=== PATIENT | male | born 1965 | race Caucasian/White ===

== ENCOUNTER 2018-10-11 12:34 | Emergency (ER) | payer BC, OTHER ==
[~2018-10-11] VITALS: Ht 170.2 cm; Wt 74.8 kg
[2018-10-11 12:46] VITALS: BP 136/85
[2018-10-11] MEDS ORDERED: VALA10005 PO (12:59)
[2018-10-11] MEDS ORDERED: LIDO15SO2 MM (12:59)
[2018-10-11] MEDS ORDERED: SULF1TAB24 PO (12:59)
--- NOTE | 2018-10-11 13:00 | PHYS DOC ---
Past History Past Medical History: Bipolar Past Surgical History: No Surgical History Alcohol Use: None Drug Use: None Adult General Chief Complaint Chief Complaint: FACE PROBLEM HPI HPI Patient is a 53-year-old male who presents with complaint of skin lesion to his lower lip that he states he thought was a pimple initially and so started mashing it. He states that it has started to swell since he started mashing it and also complains of burning pain to his lip. He denies any history of cold sores. He indicates that he has only kissed one person in the past and he states that that was his ex . He states that they only chest on the lips. He denies any fever. Review of Systems Review of Systems Constitutional: Denies fever or chills [] HENT: Positive lower lip swelling and pain[] Respiratory: Denies cough or shortness of breath [] Cardiovascular: No additional information not addressed in HPI [] Physical Exam Physical Exam Constitutional: Well developed, well nourished, no acute distress, non-toxic appearance. [] HENT: Normocephalic, atraumatic. There is swelling and soft tissue tenderness of the lower lip with skin lesion to the right, lateral aspect of the lip, consistent with HSV infection. [] Cardiovascular:Heart rate regular rhythm, no murmur [] Lungs & Thorax: Bilateral breath sounds clear to auscultation [] EKG EKG [] Radiology/Procedures Radiology/Procedures [] Course & Med Decision Making Course & Med Decision Making Pertinent Labs and Imaging studies reviewed. (See chart for details) [] Dragon Disclaimer Dragon Disclaimer This electronic medical record was generated, in whole or in part, using a voice recognition dictation system. Departure Departure: Impression: Primary Impression: Primary HSV infection of mouth Disposition: HOME, SELF-CARE Condition: STABLE Referrals: PCP,NO (PCP) Patient Instructions: Cold Sore Scripts Lidocaine HCl (Lidocaine HCl Viscous) 15 Ml Solution 1 ML MM Q2HR PRN for PAIN, #100 ML Prov: MARIA INES PUENTES Jr. DO 10/11/18 Sulfamethoxazole/Trimethoprim (BACTRIM DS TABLET) 1 Each Tablet 1 TAB PO BID for infection, #20 TAB Prov: MARIA INES PUENTES Jr. DO 10/11/18 Valacyclovir Hcl (VALTREX) 1,000 Mg Tablet 2 TAB PO BID for infection for 1 Day, #4 TAB Prov: MARIA INES PUENTES Jr. DO 10/11/18 MARIA INES PUENTES Jr. DO October 11, 2018 13:00
== END 2018-10-11 13:07 | disposition home or self-care (01) ==
LOC: ER 12:34
DX: B00.1 Herpesviral vesicular dermatitis (principal); F31.9 Bipolar disorder, unspecified
CPT/HCPCS: 99283